=== PATIENT | female | born 1975 | race Caucasian/White ===

== ENCOUNTER 2019-09-12 09:21 | Outpatient (CLI) | payer OTHER, SELFPAY ==
[2019-09-12 10:17] LABS: Basophils Percent Auto 0.4 % (0.2-1.2); Eosinophils Absolute Auto 0.1 K/mm3 (0-0.3); Eosinophils Percent Auto 1.3 % (0-4.4); Hematocrit 41.2 % (37.0-47.0); Hemoglobin 12.9 g/dL (12.0-15.0); Immature Granulocyte Absolute 0.05 K/mm3 (0.00-0.031); Immature Granulocyte Percent A 0.7 % (0-0.5); Lymphocytes Absolute Auto 1.69 K/mm3 (0.9-3.2); Lymphocytes Percent Auto 23.5 % (18.3-44.2); Mean Corpuscular HGB Conc 31.3 g/dl (32-36); Mean Corpuscular Hemoglobin 27.9 pg (26-34); Mean Corpuscular Volume 89.2 fl (80-100); Mean Platelet Volume 11.4 fl (7.4-10.4); Monocytes Absolute Auto 0.7 K/mm3 (0.1-0.6); Monocytes Percent Auto 9.7 % (2.6-8.5); Neutrophils Absolute Auto 4.6 K/mm3 (1.3-6.7); Neutrophils Percent Auto 64.4 % (45.5-73.1); Platelet Count Result 274 k/mm3 (150-375); Red Blood Count 4.62 M/mm3 (4.2-5.4); Red Cell Distribution Width 15.7 % (11.5-14.5); White Blood Count 7.2 K/mm3 (4.5-10.0)
[2019-09-14 16:32] LABS: EBV Nuclear Ab Interpretation Past; EBV Virus Capsid Ag IgM Ab <36.00 U/mL (<36.00)
[2019-09-18 07:29] LABS: CMV IgM Antibody <30.00
== END 2019-09-12 09:22 | disposition home or self-care (01) ==
PROVIDERS: PCP Family Medicine; Visit Provider Nurse Practitioner Family
DX: R05 Cough (principal); R59.1 Generalized enlarged lymph nodes
CPT/HCPCS: 36415; 85025; 86644; 86645; 86664; 86665

== ENCOUNTER 2019-10-05 14:37 | Outpatient (CLI) | payer OTHER, SELFPAY ==
--- NOTE | 2019-10-08 18:17 | WPDPFTINT ---
PFT Interpretation PFT Interpretation: DOS: 10/05/2019 REQUESTING: Lizz Saldana NP/ Alma Powell REASON FOR TESTING: Cough PULMONARY FUNCTION TESTS Results are reproducible Spirometry: Normal FEV1 88%, 2.4 L. Normal FVC. Normal FEV1%. No bronchodilator was given. Lung volumes: Increased TLC 126%, mild hyperinflation. Severe air trapping, RV 195%. Normal airway resistance. Low ERV consistent with increased body mass index. Diffusion: DLCO is mildly decreased 72%. Flow volume loop: Normal. IMPRESSION: Normal spirometry. Mild hyperinflation and severe air trapping are consistent with an obstructive process. Normal airway resistance. Borderline low DLCO is a nonspecific finding. No bronchodilator was given. A trial of bronchodilator could be considered. Renita Brenner MD
== END 2019-10-05 14:38 | disposition home or self-care (01) ==
LOC: ANHPFT 14:40
PROVIDERS: PCP Family Medicine; Visit Provider Nurse Practitioner Family
DX: R05 Cough (principal)
CPT/HCPCS: 94375; 94726; 94729

== ENCOUNTER 2020-02-23 10:01 | Outpatient (CLI) | payer OTHER, SELFPAY ==
[2020-02-23] MEDS: SODIUM CHLORIDE 0.9% INJ 10 ML VIAL IV PUSH (12:45)
--- NOTE | 2020-02-26 09:58 | WPDPFTINT ---
PFT Interpretation PFT Interpretation: DOS: 02/23/2020 REQUESTING: Dr. Carlos Eduardo Escalante REASON FOR TESTING: Chronic cough METHACHOLINE CHALLENGE This test was conducted per ATS guidelines. A previous study on 10/05/2019.showed normal spirometry, FEV1 86%. The patient was exposed to sequentially increasing doses of methacholine in the usual manner. Level 1 - saline Level 2 - 0.025 mg Level 3 - 0.25 mg Level 4 - 2.5 mg Level 5 - 10 mg Level 6 - 25 mg The test was stopped after the 5th dose, 10 mg, with a 37% decrease in FEV1. A decrease of 20% in the FEV1 is a positive result, and the testing is terminated. Flows returned to normal after bronchodilator was administered. IMPRESSION: This is a positive methacholine challenge with the PD20 10 mg on the 5th dose. The best use for a methacholine challenge is to rule out asthma. Clinical correlation is advised. Renita Brenner MD
--- NOTE | 2020-02-26 10:05 | WPDPFTINT ---
PFT Interpretation PFT Interpretation: DOS: 02/23/2020 REQUESTING: Stan Diane MD REASON FOR TESTING: Shortness of breath PULMONARY FUNCTION TESTS Results are reliable and reproducible. Spirometry: FEV1 is 94%, normal. FVC is 81%, normal. FEV1% is normal. No increase after bronchodilator. Flows in all the airways dropped significantly after albuterol. Lung volumes: TLC 83%. RV 68%. Both are normal. Airway resistance is 133%, elevated. Diffusion: DLCO 65% mildly decreased. Flow volume loop: Abnormal. Both limbs are irregular with the inspiratory limb flattened. IMPRESSION: This study Renita Brenner MD
== END 2020-02-23 10:02 | disposition home or self-care (01) ==
PROVIDERS: PCP Family Medicine; Visit Provider Internal Medicine Critical Care Medicine
DX: R05 Cough (principal)
CPT/HCPCS: 36415; 82785; 86003; 94070; J7674

== ENCOUNTER → 2021-12-23 15:47 | Outpatient (CLI) | payer OTHER, SELFPAY ==
--- NOTE | ~2021-12-23 | XR_ITS ---
XR hip RT 2V w AP pelvis 12/23/2021 16:23 Indication: Right hip pain Procedure: 3 views right hip Comparison: No prior studies for comparison. Findings: No fracture, subluxation or dislocation. No significant soft tissue abnormality. No foreign body. No significant soft tissue abnormality. Pelvic rings are intact. Impression: 1: No acute bone or joint abnormality. Reviewed, dictated and finalized at location A. Impression: 1: No acute bone or joint abnormality.
--- NOTE | ~2021-12-23 | XR_ITS ---
EXAM: XR lumbar spine min 4V HISTORY: Back Pain . COMPARISON: None available. FINDINGS: 5 nonrib-bearing lumbar-type vertebral bodies. Pedicles intact. Minimal 1 to 2 mm retrolis thesis of L2 on L3 and L3 on L4. Slight worsening of the L2-3 listhesis in extension. Vertebral body heights preserved. Mild disc space narrowing at L2-3, with mild multilevel marginal osteophytosis. Fa cet sclerosis in the lower lumbar spine. No fracture or dislocation. IMPRESSION: Very mild grade 1 dynamic listhesis at L2-3. Mild multilevel degenerative disc disease, m ost evident at L2-3. Lower lumbar facet arthropathy. Reviewed, dictated and finalized at location K. IMPRESSION: Very mild grade 1 dynamic listhesis at L2-3. Mild multilevel degene rative disc disease, most evident at L2-3. Lower lumbar facet arthropathy.
== END ==
PROVIDERS: PCP Family Medicine; Visit Provider Chiropractor Rehabilitation
DX: M47.26 Other spondylosis with radiculopathy, lumbar region (principal); M48.061 Spinal stenosis, lumbar region without neurogenic claudication; M25.551 Pain in right hip
CPT/HCPCS: 72110; 73502

== ENCOUNTER → 2022-01-14 15:04 | Outpatient (CLI) | payer OTHER, SELFPAY ==
--- NOTE | ~2022-01-14 | MR_ITS ---
EXAMINATION: MR hip RT wo con DATE: 01/14/2022 15:57 INDICATION: Right groin pain. TECHNIQUE: Magnetic resonance imaging (MRI) of the right hip was performed without intravenous contra st. COMPARISON: Pelvis and right hip radiographs 12/23/2021 FINDINGS: Bones/cartilage: Bone alignment is normal. No fracture. The femoral head/neck morphologies are normal. The hip joints demonstrate tiny osteophytes. Small [id number] images of right hip demonstrate partial thickness c artilage loss. Labrum: The right acetabular labrum is intact. Fluid: There is no hip joint effusion. There is mild bilateral trochanteric bursitis. Soft tissues: There is mild tendinopathy of the hamstring origins bilaterally. The iliopsoas tendons are normal. Th ere is moderate tendinopathy of the gluteus minimus tendons bilaterally. The gluteus medius tendons a re normal. IMPRESSION: 1. Mild osteoarthritis of the hips. Reviewed, dictated and finalized at location A.
== END ==
PROVIDERS: PCP Chiropractor Rehabilitation; Visit Provider Chiropractor Rehabilitation
DX: M16.0 Bilateral primary osteoarthritis of hip (principal)
CPT/HCPCS: 73721

== ENCOUNTER 2023-09-24 11:56 | Outpatient (CLI) | payer OTHER, SELFPAY ==
--- NOTE | ~2023-09-24 | XR_ITS ---
XR chest 2V DATE: 09/24/2023 12:19 INDICATION: Cough TECHNIQUE: 2 views COMPARISON: 09/01/2019 CT chest FINDINGS: Normal heart size. No hilar or mediastinal enlargement. No pulmonary infiltrate or consolid ation, pleural effusion or pulmonary vascular congestion or pneumothorax is detected. Included skeletal structures are unremarkable. IMPRESSION: No active cardiopulmonary disease Reviewed, dictated and finalized at location B. [employer]
== END 2023-09-24 11:57 ==
LOC: MICIMG 12:01
PROVIDERS: PCP Nurse Practitioner Family; Visit Provider Nurse Practitioner Family
DX: R05.9 Cough, unspecified (principal)
CPT/HCPCS: 71046